=== PATIENT | female | born 1950 | race Caucasian/White ===

== ENCOUNTER 2017-02-23 09:28 | Emergency (ER) | payer BC ==
[2017-02-23 09:43] VITALS: BP 126/56
--- NOTE | 2017-02-23 10:01 | ED ---
GI/ HPI - HPI Summary HPI Summary: 66 yr old female with the complaint of dysuria and frequency of urination. Onset of symptoms was four days ago. She denies fever, chills, back pain, NV. The patient has not had a uti in several years. - History of Current Complaint Chief Complaint: UCGU Time Seen by Provider: 02/23/17 09:44 Stated Complaint: BLADDER INFECTION - Allergy/Home Medications Allergies/Adverse Reactions: Allergies Allergy/AdvReac Type Severity Reaction Status Date / Time Ciprofloxacin [From Cipro] Allergy Shakes Verified 02/23/17 09:36 Home Medications: Home Medications Ropinirole Hydrochloride [Ropinirole HCl] 1 mg PO DAILY 02/23/17 [History Confirmed 02/23/17] PMH/Surg Hx/FS Hx/Imm Hx Endocrine/Hematology History: Denies: Hx Diabetes Cardiovascular History: Reports: Hx Hypertension - ON MEDS Denies: Hx Pacemaker/ICD, Other Cardiovascular Problems/Disorders Respiratory History: Reports: Other Respiratory Problems/Disorders - SINUS DRAINAGE- NO MEDS GI History: Reports: Hx Gastroesophageal Reflux Disease Denies: Other GI Disorders History: Reports: Hx Kidney Stones - ESWL 2008 Denies: Hx Renal Disease Musculoskeletal History: Reports: Hx Arthritis - RIGHT KNEE Denies: Other Musculoskeletal History Sensory History: Reports: Hx Contacts or Glasses - GLASSES Denies: Hx Hearing Aid Opthamlomology History: Reports: Hx Contacts or Glasses - GLASSES Neurological History: Denies: Other Neuro Impairments/Disorders Psychiatric History: Denies: Hx Panic Disorder - Surgical History Surgery Procedure, Year, and Place: 2 1980 AND 1988,[id number], [facility] [place] 1994 AND 2012 , HERNIA 1995, [facility], LITHOTRIPSY 2008, [facility], [facility] Hx Anesthesia Reactions: No Infectious Disease History: No Infectious Disease History: Denies: Traveled Outside the in Last 30 Days - Family History Known Family History: Positive: None, Other - mother: arthritis - Social History Lives: With Family Alcohol Use: Occasionally Alcohol Amount: 1-2 drinks a week Substance Use Type: Reports: None Smoking Status (MU): Former Smoker Review of Systems Negative: Fever, Chills Negative: Vomiting Positive: dysuria, frequency. Negative: flank pain, hematuria, incontinence All Other Systems Reviewed And Are Negative: Yes Physical Exam Triage Information Reviewed: Yes Vital Signs On Initial Exam: Initial Vitals Temp Pulse Resp BP Pulse Ox 99 F 63 18 126/56 98 02/23/17 09:38 02/23/17 09:38 02/23/17 09:38 02/23/17 09:38 02/23/17 09:38 Vital Signs Reviewed: Yes Appearance: Positive: Well-Appearing, No Pain Distress Skin: Positive: Warm Head/Face: Positive: Normal Head/Face Inspection Eyes: Positive: EOMI, CHARITO ENT: Positive: Normal ENT inspection Neck: Positive: Nontender Respiratory/Lung Sounds: Positive: Clear to Auscultation, Breath Sounds Present Cardiovascular: Positive: RRR. Negative: Murmur Abdomen Description: Positive: Nontender. Negative: CVA Tenderness (R), CVA Tenderness (L) Musculoskeletal: Positive: Strength/ROM Intact Neurological: Positive: Sensory/Motor Intact, Alert, Oriented to Person Place, Time, CN Intact II-III, Normal Gait Psychiatric: Positive: Normal Diagnostics - Vital Signs Vital Signs Temp Pulse Resp BP Pulse Ox 02/23/17 09:38 99 F 63 18 126/56 98 - Laboratory Lab Results: Lab Results 02/23/17 Range/Units 09:40 POC Urine Color Yellow POC Urine Clarity Slightly cloudy POC Urine pH 6.5 (5-9) POC Ur Specif [place] 1.020 (1.010-1.030) POC Urine Protein Negative (Negative) POC Ur Glucose (UA) Negative (Negative) POC Urine Ketones Negative (Negative) POC Urine Blood Trace-intact H (Negative) POC Urine Nitrite Negative (Negative) POC Urine Bilirubin Negative (Negative) POC Urine Urobilinogen 1.0 (Negative) POC U Leukocyte Esteras 2+ H (Negative) Lab Statement: Any lab studies that have been ordered have been reviewed, and results considered in the medical decision making process. GIGU Course/Dx - Course Course Of Treatment: 66 yr old with UTI. DC home in good condition on bactrim ds/ - Diagnoses Provider Diagnoses: UTI (urinary tract infection) Discharge - Discharge Plan Condition: Good Disposition: HOME Prescriptions: Sulfamethox/Trimethoprim DS* [Bactrim DS 800/160 TAB*] 1 tab PO BID #10 tab Patient Education Materials: Urinary Tract Infection in Women (ED) Referrals: [facility] [place] [facility] REFERRAL [Outside] Non Staff,Doctor [Primary Care Provider] -
== END 2017-02-23 10:00 | disposition home or self-care (01) ==
LOC: UCCORT 09:28
DX: N39.0 Urinary tract infection, site not specified (principal); Z87.891 Personal history of nicotine dependence
CPT/HCPCS: 81003; 87086; 99212; G0463

== ENCOUNTER 2017-09-22 12:00 | Emergency (ER) | payer BC ==
[2017-09-22 13:04] VITALS: BP 139/82
--- NOTE | 2017-09-22 13:27 | UC ---
Complaint Female HPI - HPI Summary HPI Summary: patient has had increase frequency and buring with urination for 2 days - History Of Current Complaint Chief Complaint: UCGU Stated Complaint: UTI SYMPTOMS Time Seen by Provider: 09/22/17 13:19 Hx Obtained From: Patient ?: No Onset/Duration: Sudden Onset, Lasting Days Timing: Intermittent Severity Initially: Mild Severity Currently: Mild Pain Intensity: 0 Character: Burning Aggravating Factor(s): Urination - Allergies/Home Medications Allergies/Adverse Reactions: Allergies Allergy/AdvReac Type Severity Reaction Status Date / Time ciprofloxacin Allergy Shakes Verified 09/22/17 13:05 Home Medications: Home Medications Atenolol TAB* [Tenormin TAB* 50 MG] 50 mg PO DAILY 09/22/17 [History Confirmed 09/22/17] PMH/Surg Hx/FS Hx/Imm Hx Previously Healthy: Yes - Surgical History Surgical History: Yes Surgery Procedure, Year, and Place: 2 1980 AND 1988,[id number], [facility] [place] 1994 AND 2012 , [place]ERNIA 1995, [place] , LITHOTRIPSY 2008, [facility], [place], [facility] - Family History Known Family History: Positive: None, Other - mother: arthritis - Social History Alcohol Use: Occasionally Alcohol Amount: 1-2 drinks a week Substance Use Type: None Smoking Status (MU): Former Smoker When Did the Patient Quit Smoking/Using Tobacco: 25 years ago Review of Systems Constitutional: Negative Skin: Negative Eyes: Negative ENT: Negative Respiratory: Negative Cardiovascular: Negative Gastrointestinal: Negative Genitourinary: Dysuria, Frequency, Urgency Motor: Negative Neurovascular: Negative Musculoskeletal: Negative Neurological: Negative Psychological: Negative Is Patient Immunocompromised?: No All Other Systems Reviewed And Are Negative: Yes Physical Exam Triage Information Reviewed: Yes Appearance: Well-Nourished, Ill-Appearing, Pain Distress Vital Signs: Initial Vital Signs Temp 98.8 F 09/22/17 12:52 Pulse 66 09/22/17 12:52 Resp 20 09/22/17 12:52 BP 139/82 09/22/17 12:52 Pulse Ox 99 09/22/17 12:52 Vital Signs Reviewed: Yes Eye Exam: Normal ENT Exam: Normal Dental Exam: Normal Neck exam: Normal Respiratory Exam: Normal Respiratory: Positive: Chest non-tender, Lungs clear, Normal breath sounds Cardiovascular Exam: Normal Cardiovascular: Positive: RRR, No Murmur, Pulses Normal Abdominal Exam: Normal Abdomen Description: Positive: Nontender, No Organomegaly, Soft, CVA Tenderness (R) - neg, CVA Tenderness (L) - neg Bowel Sounds: Positive: Present Musculoskeletal Exam: Normal Neurological Exam: Normal Psychological Exam: Normal Skin Exam: Normal Complaint Female Dx - Course Course Of Treatment: hx obtained, exam performed ,meds reviewed, UA obtained - Differential Dx/Diagnosis Differential Diagnosis/HQI/PQRI: Ureteral Stone, Urinary Tract Infection Provider Diagnoses: UTI Discharge - Sign-Out/Discharge Documenting (check all that apply): Discharge - Discharge Plan Condition: Stable Disposition: HOME Prescriptions: Nitrofurantoin Macrocrystals* [Macrodantin*] 100 mg PO BID #14 cap Referrals: Isamar Adams MD [Primary Care Provider] - - Billing Disposition and Condition Condition: STABLE Disposition: HOME
== END 2017-09-22 13:50 | disposition home or self-care (01) ==
LOC: UCCORT 12:00
DX: N39.0 Urinary tract infection, site not specified (principal); Z88.3 Allergy status to other anti-infective agents; Z87.891 Personal history of nicotine dependence
CPT/HCPCS: 81003; 87086; 99212; G0463

== ENCOUNTER 2017-11-16 09:56 | Emergency (ER) | payer BC ==
[2017-11-16 10:54] VITALS: BP 135/62
--- NOTE | 2017-11-16 11:42 | ED ---
ED Suture/Wound Check - HPI Summary HPI Summary: 67 yr old female with mary in scalp day ten. Would like removed. She had them put in in the [place] ER 10 days ago. She had fallen and hit head on coffee table. She states she had scans of head, neck and that they were ok. She has not had headaches and has been doing ok otherwise using her walker to ambulate. The patient states that she had two mary put in the scalp. - History Of Current Complaint Chief Complaint: UCLaceration Stated Complaint: SUTURE REMOVAL (HEAD) Time Seen by Provider: 11/16/17 11:23 Pain Intensity: 0 - Allergies/Home Medications Allergies/Adverse Reactions: Allergies Allergy/AdvReac Type Severity Reaction Status Date / Time ciprofloxacin Allergy Shakes Verified 11/16/17 10:47 Home Medications: Home Medications Diclofenac Sodium EC TAB* [Voltaren EC TAB*] 25 mg PO BID 11/16/17 [History Confirmed 11/16/17] Ibuprofen TAB* [Advil TAB*] 400 - 600 mg PO Q6H PRN 11/16/17 [History Confirmed 11/16/17] PMH/Surg Hx/FS Hx/Imm Hx Endocrine/Hematology History: Denies: Hx Diabetes Cardiovascular History: Reports: Hx Hypertension Denies: Hx Pacemaker/ICD, Other Cardiovascular Problems/Disorders Respiratory History: Reports: Other Respiratory Problems/Disorders - SINUS DRAINAGE- NO MEDS GI History: Reports: Hx Gastroesophageal Reflux Disease Denies: Other GI Disorders History: Reports: Hx Kidney Stones - ESWL 2008 Denies: Hx Renal Disease Musculoskeletal History: Reports: Hx Arthritis - RIGHT KNEE Denies: Other Musculoskeletal History Sensory History: Reports: Hx Contacts or Glasses - GLASSES Opthamlomology History: Reports: Hx Contacts or Glasses - GLASSES Neurological History: Denies: Other Neuro Impairments/Disorders Psychiatric History: Denies: Hx Panic Disorder - Surgical History Surgery Procedure, Year, and Place: 2 1980 AND 1988,[id number], [facility] [place] ,[place] 1994 AND 2012 , [place]IA 1995, [place] , LITHOTRIPSY 2008, [facility] [place], [facility] Hx Anesthesia Reactions: No Infectious Disease History: No Infectious Disease History: Denies: Traveled Outside the [place] in Last 30 Days - Family History Known Family History: Positive: None, Other - mother: arthritis - Social History Alcohol Use: Occasionally Alcohol Amount: 1-2 drinks a week Substance Use Type: Reports: None Smoking Status (MU): Former Smoker Length of Time of Smoking/Using Tobacco: Some Day Smoker On and Off x 10-15 Years Review of Systems Positive: Other - mary in scalp Negative: Headache All Other Systems Reviewed And Are Negative: Yes Physical Exam Triage Information Reviewed: Yes Vital Signs On Initial Exam: Initial Vitals Temp Pulse Resp BP Pulse Ox 97.8 F 62 16 135/62 99 11/16/17 10:49 11/16/17 10:49 11/16/17 10:49 11/16/17 10:49 11/16/17 10:49 Vital Signs Reviewed: Yes Appearance: Positive: Well-Appearing, No Pain Distress Skin: Positive: Other - mary in scalp Head/Face: Positive: Scalp - mary in scalp wound not draining. Two mary present. wound healed. Eyes: Positive: EOMI Respiratory/Lung Sounds: Positive: Other - normal respiratory effort. Cardiovascular: Positive: Other - normal skin perfusion Abdomen Description: Negative: Distended Musculoskeletal: Positive: Strength/ROM Intact Neurological: Positive: Sensory/Motor Intact, Alert, Oriented to Person Place, Time, CN Intact II-III Psychiatric: Positive: Normal - [place] Coma Scale Best Eye Response: 4 - Spontaneous Best Motor Response: 6 - Obeys Commands Best Verbal Response: 5 - Oriented Coma Scale Total: 15 Diagnostics - Vital Signs Vital Signs Temp Pulse Resp BP Pulse Ox 11/16/17 10:49 97.8 F 62 16 135/62 99 - Laboratory Lab Statement: Any lab studies that have been ordered have been reviewed, and results considered in the medical decision making process. Course/Dx - Course Course Of Treatment: 67 yr old female with mary removed from the scalp. - Clinical Impression Provider Diagnoses: Encounter for removal of mary Discharge - Sign-Out/Discharge Documenting (check all that apply): Discharge/Admit/Transfer - Discharge Plan Condition: Good Disposition: HOME Patient Education Materials: [employer] (ED) Referrals: Isamar Adams MD [Primary Care Provider] - 2 Days - Billing Disposition and Condition Condition: GOOD Disposition: Home
== END 2017-11-16 11:51 | disposition home or self-care (01) ==
LOC: UCCORT 09:56
DX: S01.01XD Laceration without foreign body of scalp, subsequent encounter (principal); W08.XXXD Fall from other furniture, subsequent encounter; Y93.9 Activity, unspecified; Y92.9 Unspecified place or not applicable
CPT/HCPCS: 99211; G0463

== ENCOUNTER 2018-01-21 07:05 | Observation (INO) | payer BC, MEDICARE ==
[~2018-01-21 07:05] MED LIST: Buffered Lidocaine 0.9% SYRIN* 5 ML/SYR SYRINGE INTRADERM ONE; Dexamethasone IV* 4 MG/ML 1 ML (4 MG) IV SLOW PU ONE; Famotidine IV* 10 MG/ML 2 ML (20 mg) IV ONE
[2018-01-21] MEDS ORDERED: Dexamethasone IV* 4 MG/ML 1 ML (4 MG) ONE (07:21)
[2018-01-21] MEDS ORDERED: ceFAZolin 2 GM PREMIX in ORs 2 GM/50 ML BAG IVPB ONE (07:21)
[2018-01-21] MEDS ORDERED: Famotidine IV* 10 MG/ML 2 ML (20 mg) ONE (07:21)
[2018-01-21] MEDS ORDERED: Mivacurium Chloride* 20 MG/10 ML VIAL IV ONE (08:38)
[2018-01-21] MEDS ORDERED: Propofol* 10 MG/ML 20 ML BTL IV PUSH ONE (08:38)
[2018-01-21] MEDS ORDERED: Lidocaine 2% PF * 5 ML VIAL ONE (08:38)
[2018-01-21] MEDS ORDERED: Midazolam* 1 MG/ML 2 ML VIAL (2 MG) ONE (09:03)
[2018-01-21] MEDS ORDERED: fentaNYL* 50 MCG/ML 2 ML VIAL (100 MCG VIAL) ONE ×2 (09:03→11:39)
[2018-01-21] MEDS ORDERED: PROCHLORPERAZINE INJ 5 MG/ML 2 ML VIAL IV PRN (09:09)
[2018-01-21] MEDS ORDERED: HYDROcodone/ACETAMIN 5-325 MG* 1 TAB PO PRN (09:09)
[2018-01-21] MEDS ORDERED: oxyCODONE/Acetamin 5/325 MG* TAB PO PRN (09:09)
[2018-01-21] MEDS ORDERED: fentaNYL* 50 MCG/ML 2 ML VIAL (100 MCG VIAL) IV PRN (09:09)
[2018-01-21] MEDS ORDERED: Naloxone* 0.4 MG/ML 1 ML VIAL IV PRN (09:09)
[2018-01-21] MEDS ORDERED: Bacitracin IV* 50,000 UNITS INJ ONE (09:10)
[2018-01-21] MEDS ORDERED: Lidocain 1% EPI 1:100,000 * 30 ML MDV ONE ×2 (09:10→09:31)
[2018-01-21] MEDS ORDERED: Thrombin 5,000 UNITS* 1 APPLIC KIT - topical use - TOPICAL ONE (09:10)
[2018-01-21] MEDS ORDERED: Ondansetron INJ* 2 MG/ML VIAL ONE (10:50)
[2018-01-21] MEDS ORDERED: Ondansetron INJ* 2 MG/ML VIAL IV PRN (11:11)
[2018-01-21] MEDS ORDERED: Zolpidem TAB* 10 MG PO PRN (11:11)
[2018-01-21] MEDS ORDERED: Magnesium Hydroxide LIQ* 30 ML UDC PO PRN (11:11)
[2018-01-21] MEDS ORDERED: Acetaminophen TAB* 325 MG PO PRN (11:11)
--- NOTE | 2018-01-21 12:35 | RAD ---
Indication: Lumbar discectomy. Single lateral view of the lumbar spine demonstrates localization of the L4-L5 disc interspace. IMPRESSION: Localization of the L4-L5 disc interspace.
[2018-01-21] MEDS: HYDROcodone/ACETAMIN 5-325 MG* 1 TAB PO PRN ×3 (13:46→23:14)
[2018-01-21] MEDS ORDERED: rOPINIRole TAB* 1 MG PO SCH (14:00)
[2018-01-21] MEDS: rOPINIRole TAB* 4 MG PO SCH ×2 (14:52→21:22)
[2018-01-21] MEDS: rOPINIRole TAB* 1 MG PO SCH ×2 (14:52→21:22)
[2018-01-21] MEDS ORDERED: Gabapentin CAP(*) 300 MG PO SCH (21:00)
[2018-01-22] MEDS: HYDROcodone/ACETAMIN 5-325 MG* 1 TAB PO PRN ×2 (06:51→10:47)
[2018-01-22] MEDS ORDERED: Atenolol TAB* 50 MG PO SCH (09:00)
[2018-01-22] MEDS ORDERED: Atorvastatin* 10 MG TAB PO SCH (09:00)
[2018-01-22] MEDS ORDERED: Cyanocobalamin TAB* 500 MCG PO SCH (09:00)
[2018-01-22] MEDS ORDERED: Diclofenac Sodium EC TAB* 25 MG PO SCH (09:00)
[2018-01-22 10:09] VITALS: BP 134/74
[2018-01-22] MEDS: rOPINIRole TAB* 4 MG PO SCH (10:21)
[2018-01-22] MEDS: rOPINIRole TAB* 1 MG PO SCH (10:23)
--- NOTE | 2018-01-22 11:12 | PN ---
Progress Note - Progress Note Date of Service: 01/22/18 SOAP: Subjective: []POD # 1 Pre op leg pain better C/O moderate incisional pain Has had some bleeding from wound Objective: []Neuro intact Moderate drainage on dressing Assessment: [] Satis post op course Plan: []D/C today D/C Instructions given
--- NOTE | 2018-01-29 15:30 | OP ---
DATE OF OPERATION: 01/21/18 - ROOM #333 DATE OF : 52 SURGEON: Silas Uriarte MD ANESTHESIA: General. PRE-OP DIAGNOSIS: Herniated nucleus pulposus, L4-L5 on the left. POST-OP DIAGNOSIS: Herniated nucleus pulposus, L4-L5 on the left. OPERATIVE PROCEDURE: Lumbar diskectomy, L4-L5 on the left with microdissection. DESCRIPTION OF PROCEDURE: After satisfactory general anesthesia was obtained, the patient was placed on operating table in prone position with the chest supported on the J Carlos frame and the back slightly flexed. The lumbar region was then clipped, prepped and draped in a sterile manner for a lumbar laminectomy and skin incision outlined from L4 to L5. This incision was infiltrated with 1% Xylocaine with epinephrine after which it was turned down sharply to the level of the lumbar fascia. The fascia was divided along the spinous processes of L4 and L5 and the paraspinal musculature stripped away from these posterior elements using the periosteal elevator and monopolar cautery. A partial hemilaminectomy was then carried out by removing the inferior aspect of the L4 lamina and medial aspect of the facet complex with a combination of the Midas Zay drill and Kerrison rongeurs. This was carried superiorly into the attachment of ligamentum flavum was taken down. Ligamentum flavum was then removed with the Kerrison as well. A generous foraminotomy was carried out over the L5 nerve root. Additional superior and lateral exposure was also obtained as preoperative imaging has suggested a superior and lateral migration of a disk fragment. Utilizing microdissection, epidural venous structures were coagulated and divided. Projecting out into the foramen of the L4 nerve root was herniated disk material. The posterior longitudinal ligament was opened and the disk space cleared of any loose material using pituitary forceps and curettes. Additional disk material was removed from behind the body of L4 on the left side. At the conclusion of the decompression, both the L4 and L5 nerve roots noted to be free in their course. It was felt that a satisfactory decompression had been achieved. After assuring adequate hemostasis, the wound was thoroughly irrigated, after which a piece of Gelfoam was placed over the laminectomy defect. The fascia was then reapproximated with 0 Vicryl suture. The subcutaneous tissue was closed with 3-0 Vicryl suture and the skin closed with skin clips. The estimated blood loss was less then 50 cc and final sponge, padding, and needle counts were correct. The patient was taken to the recovery room, extubated and in stable condition. [id number]/[facility] #: [id number] MTDElva
== END 2018-01-22 11:00 | disposition home or self-care (01) ==
LOC: OR 07:05 → SSU 11:11
PROVIDERS: ADMIT Neurological Surgery; ATTEND Neurological Surgery
DX: M51.26 Other intervertebral disc displacement, lumbar region (principal); M54.9 Dorsalgia, unspecified; I10 Essential (primary) hypertension; E78.5 Hyperlipidemia, unspecified; G20 Parkinson's disease
CPT/HCPCS: 72100; 96374; A9270-GY; G0378; J0690; J1100; J2250; J2405; J2704; J3010

== ENCOUNTER 2018-09-26 13:45 | Emergency (ER) | payer BC ==
[2018-09-26 14:17] VITALS: BP 151/64
--- NOTE | 2018-09-26 14:25 | UC ---
Complaint Female HPI - HPI Summary HPI Summary: Pt presents with c/o sudden onset of urinary urgency, frequency and dysuria. Pt has hx of kidney stones. Denies back pain - History Of Current Complaint Chief Complaint: UCGU Stated Complaint: URINARY COMPLAINT Time Seen by Provider: 09/26/18 14:16 Hx Obtained From: Patient ?: No Onset/Duration: Sudden Onset Timing: Constant Severity Initially: Mild Severity Currently: Mild Pain Intensity: 6 Character: Burning, Colicy Aggravating Factor(s): Urination Alleviating Factor(s): Nothing Associated Signs And Symptoms: Positive: Negative - Risk Factors Ectopic Risk Factor: Negative Ovarian Torsion Risk Factor: Negative - Allergies/Home Medications Allergies/Adverse Reactions: Allergies Allergy/AdvReac Type Severity Reaction Status Date / Time ciprofloxacin AdvReac Shakes Verified 09/26/18 14:11 PMH/Surg Hx/FS Hx/Imm Hx Previously Healthy: Yes Endocrine History: Dyslipidemia Cardiovascular History: Cardiac Disease, Hypertension - Surgical History Surgical History: Yes Surgery Procedure, Year, and Place: 2 1980 AND 1988. [id number] [facility]. RT AND LT BREAST BIOPSY [place] 1994 AND 2012. HERNIA 1995, [facility]. LASER LITHOTRIPSY 2008, [facility] [place]. TONSILLECTOMY, 1957 [facility]. back surgery 01/2018 - Family History Known Family History: Positive: None, Other - mother: arthritis - Social History Occupation: Employed Full-time Lives: With Family Alcohol Use: Occasionally Alcohol Amount: 1-2 drinks a week Substance Use Type: Marijuana Substance Use Comment - Amount & Last Used: reports occas - last 01/12/18 Smoking Status (MU): Former Smoker Amount Used/How Often: 1 pack per week for 15 yrs Length of Time of Smoking/Using Tobacco: Some Day Smoker On and Off x 10-15 Years Have You Smoked in the Last Year: No When Did the Patient Quit Smoking/Using Tobacco: 1994 Review of Systems All Other Systems Reviewed And Are Negative: Yes Constitutional: Positive: Negative Skin: Positive: Negative Eyes: Positive: Negative ENT: Positive: Negative Respiratory: Positive: Negative Cardiovascular: Positive: Negative Gastrointestinal: Positive: Negative Genitourinary: Positive: Dysuria, Frequency, Urgency Motor: Positive: Negative Neurovascular: Positive: Negative Musculoskeletal: Positive: Negative Neurological: Positive: Negative Psychological: Positive: Negative Is Patient Immunocompromised?: No Physical Exam Triage Information Reviewed: Yes Appearance: Well-Appearing, Obese, Other: - uses a cane to ambulate Vital Signs: Initial Vital Signs Temp 98.3 F 09/26/18 14:06 Pulse 92 09/26/18 14:06 Resp 18 09/26/18 14:06 BP 151/64 09/26/18 14:06 Pulse Ox 97 09/26/18 14:06 Vital Signs Reviewed: Yes Eye Exam: Normal ENT Exam: Normal Dental Exam: Normal Neck exam: Normal Respiratory Exam: Normal Respiratory: Positive: No respiratory distress Abdominal Exam: Normal Abdomen Description: Positive: Nontender Musculoskeletal Exam: Normal Musculoskeletal: Positive: Other: - uses cane to ambulate Neurological Exam: Normal Psychological Exam: Normal Skin Exam: Normal Complaint Female Dx - Differential Dx/Diagnosis Differential Diagnosis/HQI/PQRI: Urinary Tract Infection Provider Diagnosis: UTI (urinary tract infection) Discharge - Sign-Out/Discharge Documenting (check all that apply): Patient Departure All imaging exams completed and their final reports reviewed: No Studies - Discharge Plan Condition: Stable Disposition: HOME Prescriptions: Cephalexin CAP* [Keflex 500 CAP*] 500 mg PO Q8H #21 cap Phenazopyridine 200 mg (NF) [Pyridium 200 MG tab *] 200 mg PO Q8H #3 tab Patient Education Materials: Urinary Tract Infection in Women (ED) Referrals: Isamar Adams MD [Primary Care Provider] - If Needed - Billing Disposition and Condition Condition: STABLE Disposition: Home
--- NOTE | 2018-09-29 07:32 | UC ---
- Progress Note Progress Note: Pt with no growth urinary culture please contact - if improved - complete abx recommend f/u with PCP jackeline 09/29/18 Course/Dx - Diagnoses Provider Diagnoses: UTI (urinary tract infection) Discharge - Sign-Out/Discharge Documenting (check all that apply): Patient Departure All imaging exams completed and their final reports reviewed: No Studies - Discharge Plan Condition: Stable Disposition: HOME Prescriptions: Cephalexin CAP* [Keflex 500 CAP*] 500 mg PO Q8H #21 cap Phenazopyridine 200 mg (NF) [Pyridium 200 MG tab *] 200 mg PO Q8H #3 tab Patient Education Materials: Urinary Tract Infection in Women (ED) Referrals: Isamar Adams MD [Primary Care Provider] - If Needed - Billing Disposition and Condition Condition: STABLE Disposition: Home
== END 2018-09-26 14:35 | disposition home or self-care (01) ==
LOC: UCCORT 13:45
DX: N39.0 Urinary tract infection, site not specified (principal); Z87.891 Personal history of nicotine dependence; I10 Essential (primary) hypertension; Z88.1 Allergy status to other antibiotic agents
CPT/HCPCS: 81003; 87086; 99212; G0463